=== PATIENT | male | born 1980 | race Caucasian/White ===

== ENCOUNTER 2024-02-26 16:34 | Emergency (ER) | payer OTHER ==
[~2024-02-26] VITALS: Ht 170.2 cm; Wt 106.6 kg
[2024-02-26] MEDS ORDERED: methylPREDNISolone SOD SUCC 125 MG/2 ML VIAL ONE (16:54)
[2024-02-26] MEDS ORDERED: FAMOTIDINE. 20 MG/2 ML VIAL IV ONE (16:55)
[2024-02-26] MEDS: FAMOTIDINE. 20 MG/2 ML VIAL IV ONE (17:03)
[2024-02-26] MEDS: IV NORMAL SALINE 1000 ML BAG IV ONE (17:03)
[2024-02-26] MEDS: methylPREDNISolone SOD SUCC 125 MG/2 ML VIAL IV ONE (17:03)
[2024-02-26] MEDS ORDERED: DIPH25CA83 PO (17:31)
[2024-02-26] MEDS ORDERED: CLIN300C12 PO (17:31)
[2024-02-26] MEDS ORDERED: PRED20TA PO (17:31)
[2024-02-26] MEDS ORDERED: EPIN0.3P3 IM (17:31)
[2024-02-26] MEDS ORDERED: FAMO-132 PO (17:31)
[2024-02-26 17:52] VITALS: BP 110/85; O2SAT 96
== END 2024-02-26 17:55 | disposition home or self-care (01) ==
LOC: ER 16:34
DX: R22.43 Localized swelling, mass and lump, lower limb, bilateral (principal); R22.33 Localized swelling, mass and lump, upper limb, bilateral; T36.0X5A Adverse effect of penicillins, initial encounter; Z88.0 Allergy status to penicillin; Y92.89 Other specified places as the place of occurrence of the external cause
CPT/HCPCS: 99284; 96374; 96361; 96375; J3490; J2919; J7040; A4606; A4663